=== PATIENT | male | born 1965 | race Caucasian/White ===

== ENCOUNTER 2021-10-25 17:42 | Inpatient (IN) ==
[2021-10-25] MEDS ORDERED: Naloxone 0.4 MG/ML INJ IVP PRN (22:24)
[2021-10-25] MEDS ORDERED: Ondansetron 4 MG/2 ML VIAL IVP PRN (22:24)
[2021-10-25] MEDS ORDERED: Acetaminophen 325 MG TABLET PO PRN (22:24)
[2021-10-25] MEDS ORDERED: Furosemide 20 MG/2 ML VIAL IVP ONE (22:38)
[2021-10-25] MEDS ORDERED: Azithromycin 500 MG in 0.9 % Sodium Chloride 250 ML IVPB SCH (23:00)
[2021-10-26 03:02] LABS: Bilirubin,Urine Negative (Negative); Blood,Urine Negative (Negative); Clarity,Urine Clear (Clear); Color,Urine Colorless (Yellow); Glucose,Urine (UA) Normal (Normal); Ketones,Urine Negative (Negative); Leukocyte Esterase,Urine Negative (Negative); Nitrite,Urine Negative (Negative); Protein,Urine Negative (Neg-Trace); Specific Gravity,Urine 1.007 (1.010-1.025); Urobilinogen,Urine Normal (Normal)
[2021-10-26 03:41] LABS: INR 1.1; Prothrombin Time 11.8 Seconds (9.4-12.1)
[2021-10-26] MEDS ORDERED: 0.9 % Sodium Chloride 500 ML IVC PRN (03:41)
[2021-10-26 03:52] LABS: C-Reactive Protein 13 mg/L (Less than 10); Creatine Kinase 20 Units/L (30-223)
[2021-10-26 04:14] LABS: % Iron Saturation 12 % (20-55); Alanine Aminotransferase 5 Units/L (7-52); Albumin 3.2 g/dL (3.5-5.7); Albumin/Globulin Ratio 1.9 (1.1-2.2); Alkaline Phosphatase 65 Units/L (34-104); Aspartate Amino Transferase 9 Units/L (13-39); BUN/Creatinine Ratio 19 (6-26); Bilirubin,Direct 0.1 mg/dL (0.0-0.2); Bilirubin,Indirect 0.3 mg/dL (0.0-1.0); Bilirubin,Total 0.4 mg/dL (0.3-1.0); Blood Urea Nitrogen 7 mg/dL (6-20); Calcium 8.4 mg/dL (8.6-10.3); Carbon Dioxide 40 mEq/L (23-29); Chloride 92 mEq/L (98-107); Ferritin 705 ng/mL (20-250); Globulin 1.7 g/dL (2.4-3.5); Glucose 104 mg/dL (70-105); Iron 27 mcg/dL (65-175); Lactate Dehydrogenase 118 Units/L (140-271); Magnesium 1.6 mg/dL (1.6-2.6); Osmolality,Calculated 282 (280-300); Phosphorous 4.2 mg/dL (2.7-4.5); Potassium 4.2 mEq/L (3.5-5.1); Sodium 137 mEq/L (136-145); Thyroid Stimulating Hormone 0.232 mcIU/mL (0.340-5.600); Total Protein 4.9 g/dL (6.4-8.9); Transferrin 155 mg/dL (203-362); Troponin I < 0.03 ng/mL (< 0.04); eGFR For African Americans > 60 (> 60); eGFR For Non-African Americans > 60 (> 60)
[2021-10-26 04:15] LABS: Folate 11.6 ng/mL (3.0-16.0)
[2021-10-26 05:09] LABS: ABG Base Excess 14 mEq/L (-2 to 3); ABG HCO3 42 mEq/L (21-27); ABG Oxygen Saturation 100 % (95-98); ABG PCO2 86 mmHg (35-45); ABG PO2 345 mmHg (85-104); ABG TCO2 45 mEq/L (20-26); Blood Gas Pressure Support 7 cm H2O
[2021-10-26 05:56] LABS: Mean Platelet Volume 10.7 fL (9.4-12.4); Red Cell Distribution Width 13.3 % (11.5-14.5)
[2021-10-26 05:58] LABS: Hematocrit 28.3 % (37.5-50.1); Hemoglobin 9.1 g/dL (12.9-16.9); Immature Granulocytes % 0.6 % (0-4); Immature Platelets 11.4 % (1.1-6.1); Lymphocytes # 0.3 K/mcL (0.6-4.6); Lymphocytes % 5.6 %; Mean Corpuscular HGB Conc 32.2 g/dL (31.6-35.5); Mean Corpuscular Hemoglobin 30.3 pg (28.0-33.3); Mean Corpuscular Volume 94.3 fL (83.0-100.0); Monocytes # 0.3 K/mcL (0.0-1.3); Monocytes % 6.8 %; Neutrophils # 4.3 K/mcL (1.6-8.9); Platelet Count 103 K/mcL (140-400); White Blood Count 4.9 K/mcL (4.3-11.1)
[2021-10-26 08:24] LABS: ABG Base Excess 19 mEq/L (-2 to 3); ABG HCO3 47 mEq/L (21-27); ABG Oxygen Saturation 90 % (95-98); ABG PCO2 76 mmHg (35-45); ABG PH 7.39 pH Units (7.32-7.45); ABG PO2 64 mmHg (85-104); ABG TCO2 49 mEq/L (20-26)
[2021-10-26] MEDS: *HR* Enoxaparin 30 MG/0.3 ML SYRINGE SQ SCH (08:40)
[2021-10-26] MEDS ORDERED: Remdesivir 200 MG in 0.9 % Sodium Chloride 100 ML IVPB ONE (10:00)
[2021-10-26] MEDS ORDERED: amLODIPine 5 MG TABLET PO ONE (10:20)
[2021-10-26] MEDS: Cyanocobalamin (B-12) 1,000 MCG TABLET PO SCH (10:25)
[2021-10-26] MEDS: hydrOXYzine pamoate 25 MG CAPSULE PO PRN (11:47)
[2021-10-26] MEDS: *HR* LORazepam 1 MG TABLET PO PRN ×2 (15:11→21:36)
[2021-10-26] MEDS: Magnesium Oxide 400 MG TABLET PO SCH (19:59)
[2021-10-26] MEDS: Metoprolol 100 MG TABLET PO SCH (19:59)
[2021-10-26] MEDS: Nicotine 21 MG PATCH.TD24 TD SCH (21:36)
[2021-10-27] MEDS: hydrOXYzine pamoate 25 MG CAPSULE PO PRN ×2 (02:30→15:34)
[2021-10-27 06:32] LABS: Basophils % 0.2 %
[2021-10-27 06:34] LABS: Hemoglobin 8.8 g/dL (12.9-16.9); Immature Granulocytes % 0.5 % (0-4); Immature Platelets 16.9 % (1.1-6.1); Lymphocytes # 0.5 K/mcL (0.6-4.6); Lymphocytes % 8.4 %; Mean Corpuscular HGB Conc 31.4 g/dL (31.6-35.5); Mean Corpuscular Hemoglobin 29.8 pg (28.0-33.3); Mean Corpuscular Volume 94.9 fL (83.0-100.0); Mean Platelet Volume 11.6 fL (9.4-12.4); Monocytes # 0.8 K/mcL (0.0-1.3); Monocytes % 13.3 %; Neutrophils # 4.5 K/mcL (1.6-8.9); Platelet Count 80 K/mcL (140-400); Red Blood Count 2.95 M/mcL (4.19-5.50); Red Cell Distribution Width 13.3 % (11.5-14.5); Segmented Neutrophils % 77.6 %; White Blood Count 5.8 K/mcL (4.3-11.1)
[2021-10-27 06:50] LABS: Alanine Aminotransferase 8 Units/L (7-52); Albumin 3.2 g/dL (3.5-5.7); Alkaline Phosphatase 59 Units/L (34-104); Aspartate Amino Transferase 9 Units/L (13-39); BUN/Creatinine Ratio 19 (6-26); Bilirubin,Direct 0.1 mg/dL (0.0-0.2); Bilirubin,Indirect 0.3 mg/dL (0.0-1.0); Bilirubin,Total 0.4 mg/dL (0.3-1.0); Blood Urea Nitrogen 6 mg/dL (6-20); Calcium 8.7 mg/dL (8.6-10.3); Carbon Dioxide > 45 mEq/L (23-29); Chloride 92 mEq/L (98-107); Globulin 1.6 g/dL (2.4-3.5); Glucose 101 mg/dL (70-105); Osmolality,Calculated 292 (280-300); Potassium 3.4 mEq/L (3.5-5.1); Sodium 142 mEq/L (136-145); Total Protein 4.8 g/dL (6.4-8.9); eGFR For African Americans > 60 (> 60); eGFR For Non-African Americans > 60 (> 60)
[2021-10-27] MEDS ORDERED: GUAIFENESIN 400 MG PO SCH (09:00)
[2021-10-27] MEDS: Magnesium Oxide 400 MG TABLET PO SCH ×3 (09:25→21:06)
[2021-10-27] MEDS: *HR* LORazepam 1 MG TABLET PO PRN ×2 (09:25→13:57)
[2021-10-27] MEDS: Cyanocobalamin (B-12) 1,000 MCG TABLET PO SCH ×2 (09:25→10:16)
[2021-10-27] MEDS: Metoprolol 100 MG TABLET PO SCH ×4 (09:26→21:06)
[2021-10-27] MEDS: *HR* Enoxaparin 30 MG/0.3 ML SYRINGE SQ SCH ×3 (09:26→13:58)
[2021-10-27] MEDS: Nicotine 21 MG PATCH.TD24 TD SCH (10:16)
[2021-10-27] MEDS: Remdesivir 100 MG in 0.9 % Sodium Chloride 100 ML IVPB SCH ×2 (11:33→14:02)
[2021-10-27 14:01] LABS: Hematocrit 32.8 % (37.5-50.1)
[2021-10-27 14:03] LABS: Hemoglobin 10.1 g/dL (12.9-16.9)
[2021-10-27] MEDS ORDERED: Haloperidol Lactate 5 MG/ML VIAL IVP PRN (15:38)
[2021-10-27] MEDS ORDERED: *HR* LORazepam 2 MG/ML VIAL IVP PRN ×2 (16:59→20:26)
[2021-10-27] MEDS ORDERED: Thiamine (B-1) 250 MG in 0.9 % Sodium Chloride 50 ML IVPB SCH (21:00)
[2021-10-27] MEDS ORDERED: QUEtiapine Fumarate 25 MG TABLET PO SCH (21:00)
[2021-10-27] MEDS: Thiamine (B-1) 250 MG in 0.9 % Sodium Chloride 50 ML IVPB SCH (21:06)
[2021-10-27] MEDS: Dexmedetomidine HCl 400 MCG/100 ML MLS IVC SCH (22:20)
[2021-10-28] MEDS: Metoprolol 100 MG TABLET PO SCH ×3 (09:00→21:25)
[2021-10-28] MEDS: Nicotine 21 MG PATCH.TD24 TD SCH (09:11)
[2021-10-28] MEDS: Thiamine (B-1) 250 MG in 0.9 % Sodium Chloride 50 ML IVPB SCH ×3 (09:12→21:51)
[2021-10-28 09:37] LABS: Hematocrit 29.9 % (37.5-50.1); Hemoglobin 9.2 g/dL (12.9-16.9); Immature Granulocytes % 0.5 % (0-4); Mean Corpuscular HGB Conc 30.8 g/dL (31.6-35.5); Mean Corpuscular Hemoglobin 29.8 pg (28.0-33.3); Mean Corpuscular Volume 96.8 fL (83.0-100.0); Mean Platelet Volume 10.5 fL (9.4-12.4); Monocytes % 8.8 %; Red Blood Count 3.09 M/mcL (4.19-5.50); Red Cell Distribution Width 13.2 % (11.5-14.5); Segmented Neutrophils % 80.7 %; White Blood Count 4.3 K/mcL (4.3-11.1)
[2021-10-28 09:38] LABS: Lymphocytes # 0.4 K/mcL (0.6-4.6); Monocytes # 0.4 K/mcL (0.0-1.3); Neutrophils # 3.5 K/mcL (1.6-8.9)
[2021-10-28 09:40] LABS: Platelet Count 51 K/mcL (140-400)
[2021-10-28] MEDS: Remdesivir 100 MG in 0.9 % Sodium Chloride 100 ML IVPB SCH (10:29)
[2021-10-28 11:00] LABS: Albumin 3.3 g/dL (3.5-5.7); Albumin/Globulin Ratio 2.1 (1.1-2.2); Bilirubin,Direct 0.1 mg/dL (0.0-0.2); Bilirubin,Indirect 0.3 mg/dL (0.0-1.0); Bilirubin,Total 0.4 mg/dL (0.3-1.0); Globulin 1.6 g/dL (2.4-3.5); Total Protein 4.9 g/dL (6.4-8.9)
[2021-10-28 11:07] LABS: BUN/Creatinine Ratio 22 (6-26); Blood Urea Nitrogen 11 mg/dL (6-20); Calcium 8.3 mg/dL (8.6-10.3); Carbon Dioxide > 45 mEq/L (23-29); Chloride 89 mEq/L (98-107); Glucose 192 mg/dL (70-105); Osmolality,Calculated 289 (280-300); Potassium 3.4 mEq/L (3.5-5.1); Sodium 137 mEq/L (136-145); eGFR For African Americans > 60 (> 60); eGFR For Non-African Americans > 60 (> 60)
[2021-10-28] MEDS ORDERED: Haloperidol Lactate 5 MG/ML VIAL IVP PRN (11:16)
[2021-10-28] MEDS: *HR* Enoxaparin 30 MG/0.3 ML SYRINGE SQ SCH (11:29)
[2021-10-28] MEDS: Cyanocobalamin (B-12) 1,000 MCG TABLET PO SCH (11:29)
[2021-10-28] MEDS: Folic Acid 1 MG TABLET PO SCH (11:29)
[2021-10-28] MEDS: Magnesium Oxide 400 MG TABLET PO SCH ×2 (11:29→21:25)
[2021-10-28] MEDS: QUEtiapine Fumarate 25 MG TABLET PO SCH ×2 (11:35→21:25)
[2021-10-28 12:54] LABS: VBG HCO3 46 mEq/L (21-27); VBG PCO2 85 mmHg (41-51); VBG PH 7.34 pH Units (7.32-7.42); VBG PO2 124 mmHg (25-50)
[2021-10-28] MEDS: Dexmedetomidine HCl 400 MCG/100 ML MLS IVC SCH (16:40)
[2021-10-28] MEDS: Ipratropium 1 PUFF INHALER IH SCH ×3 (17:32→23:51)
[2021-10-28 17:39] LABS: ABG Base Excess 20 mEq/L (-2 to 3); ABG HCO3 48 mEq/L (21-27); ABG Oxygen Saturation 96 % (95-98); ABG PCO2 88 mmHg (35-45); ABG PH 7.35 pH Units (7.32-7.45); ABG PO2 89 mmHg (85-104); ABG TCO2 > 50 mEq/L (20-26); Blood Gas Modality NIV; Blood Gas VT 450 cc
[2021-10-28 21:16] LABS: ABG Base Excess 19 mEq/L (-2 to 3); ABG HCO3 47 mEq/L (21-27); ABG Oxygen Saturation 91 % (95-98); ABG PCO2 81 mmHg (35-45); ABG PH 7.38 pH Units (7.32-7.45); ABG PO2 67 mmHg (85-104); ABG TCO2 50 mEq/L (20-26); Blood Gas Modality AVAPS; Blood Gas VT 450 cc
[2021-10-28] MEDS: *HR* LORazepam 2 MG/ML VIAL IVP PRN (21:26)
[2021-10-29] MEDS: Ipratropium 1 PUFF INHALER IH SCH ×6 (03:37→23:41)
[2021-10-29 05:17] LABS: Albumin/Globulin Ratio 2.3 (1.1-2.2); Bilirubin,Direct 0.1 mg/dL (0.0-0.2); Bilirubin,Indirect 0.2 mg/dL (0.0-1.0); Bilirubin,Total 0.3 mg/dL (0.3-1.0); Globulin 1.3 g/dL (2.4-3.5); Total Protein 4.3 g/dL (6.4-8.9)
[2021-10-29 05:58] LABS: BUN/Creatinine Ratio 33 (6-26); Blood Urea Nitrogen 14 mg/dL (6-20); Calcium 8.2 mg/dL (8.6-10.3); Carbon Dioxide > 45 mEq/L (23-29); Chloride 91 mEq/L (98-107); Glucose 108 mg/dL (70-105); Osmolality,Calculated 289 (280-300); Potassium 3.9 mEq/L (3.5-5.1); Sodium 139 mEq/L (136-145); eGFR For African Americans > 60 (> 60); eGFR For Non-African Americans > 60 (> 60)
[2021-10-29] MEDS: Dexmedetomidine HCl 400 MCG/100 ML MLS IVC SCH (10:05)
[2021-10-29] MEDS: Remdesivir 100 MG in 0.9 % Sodium Chloride 100 ML IVPB SCH (11:06)
[2021-10-29] MEDS: QUEtiapine Fumarate 25 MG TABLET PO SCH ×2 (11:08→21:30)
[2021-10-29] MEDS: Cyanocobalamin (B-12) 1,000 MCG TABLET PO SCH (11:08)
[2021-10-29] MEDS: Metoprolol 100 MG TABLET PO SCH ×2 (11:08→21:30)
[2021-10-29] MEDS: Magnesium Oxide 400 MG TABLET PO SCH ×2 (11:08→21:30)
[2021-10-29] MEDS: Folic Acid 1 MG TABLET PO SCH (11:08)
[2021-10-29] MEDS: *HR* LORazepam 2 MG/ML VIAL IVP PRN ×2 (11:21→21:31)
[2021-10-29] MEDS: Nicotine 21 MG PATCH.TD24 TD SCH (11:31)
[2021-10-29 12:36] LABS: Mean Corpuscular Volume 95.2 fL (83.0-100.0); Red Cell Distribution Width 12.9 % (11.5-14.5)
[2021-10-29 12:38] LABS: Basophils % 0.2 %; Eosinophils % 0.5 %; Hematocrit 27.8 % (37.5-50.1); Hemoglobin 8.7 g/dL (12.9-16.9); Immature Granulocytes % 0.5 % (0-4); Immature Platelets 13.2 % (1.1-6.1); Lymphocytes # 0.7 K/mcL (0.6-4.6); Lymphocytes % 13.2 %; Mean Corpuscular HGB Conc 31.3 g/dL (31.6-35.5); Mean Corpuscular Hemoglobin 29.8 pg (28.0-33.3); Monocytes # 0.7 K/mcL (0.0-1.3); Monocytes % 12.2 %; Neutrophils # 4.1 K/mcL (1.6-8.9); Red Blood Count 2.92 M/mcL (4.19-5.50); Segmented Neutrophils % 73.4 %; White Blood Count 5.6 K/mcL (4.3-11.1)
[2021-10-29 13:04] LABS: Mean Platelet Volume 10.3 fL (9.4-12.4)
[2021-10-29] MEDS: Thiamine (B-1) 250 MG in 0.9 % Sodium Chloride 50 ML IVPB SCH ×3 (13:16→21:30)
[2021-10-30] MEDS: Dexmedetomidine HCl 400 MCG/100 ML MLS IVC SCH ×2 (04:31→18:03)
[2021-10-30] MEDS: Ipratropium 1 PUFF INHALER IH SCH ×6 (04:35→23:31)
[2021-10-30 04:54] LABS: Hemoglobin 8.6 g/dL (12.9-16.9)
[2021-10-30 05:13] LABS: Hematocrit 27.7 % (37.5-50.1); Immature Granulocytes % 0.4 % (0-4); Lymphocytes # 0.5 K/mcL (0.6-4.6); Lymphocytes % 8.1 %; Mean Corpuscular Hemoglobin 29.4 pg (28.0-33.3); Mean Corpuscular Volume 94.5 fL (83.0-100.0); Mean Platelet Volume 11.9 fL (9.4-12.4); Monocytes # 0.5 K/mcL (0.0-1.3); Monocytes % 8.6 %; Platelet Count 115 K/mcL (140-400); Red Blood Count 2.93 M/mcL (4.19-5.50); Red Cell Distribution Width 13.1 % (11.5-14.5); Segmented Neutrophils % 82.9 %; White Blood Count 5.5 K/mcL (4.3-11.1)
[2021-10-30 05:14] LABS: Neutrophils # 4.6 K/mcL (1.6-8.9)
[2021-10-30 05:16] LABS: Albumin 2.9 g/dL (3.5-5.7); Albumin/Globulin Ratio 2.1 (1.1-2.2); Bilirubin,Direct 0.1 mg/dL (0.0-0.2); Bilirubin,Indirect 0.3 mg/dL (0.0-1.0); Bilirubin,Total 0.4 mg/dL (0.3-1.0); Globulin 1.4 g/dL (2.4-3.5); Total Protein 4.3 g/dL (6.4-8.9)
[2021-10-30 06:08] LABS: BUN/Creatinine Ratio 22 (6-26); Blood Urea Nitrogen 8 mg/dL (6-20); Calcium 7.9 mg/dL (8.6-10.3); Carbon Dioxide > 45 mEq/L (23-29); Chloride 93 mEq/L (98-107); Glucose 105 mg/dL (70-105); Osmolality,Calculated 287 (280-300); Potassium 4.2 mEq/L (3.5-5.1); Sodium 139 mEq/L (136-145); eGFR For African Americans > 60 (> 60); eGFR For Non-African Americans > 60 (> 60)
[2021-10-30] MEDS: Magnesium Oxide 400 MG TABLET PO SCH ×2 (08:58→21:36)
[2021-10-30] MEDS: Metoprolol 100 MG TABLET PO SCH ×2 (08:58→21:36)
[2021-10-30] MEDS: Cyanocobalamin (B-12) 1,000 MCG TABLET PO SCH (08:58)
[2021-10-30] MEDS: Folic Acid 1 MG TABLET PO SCH (08:58)
[2021-10-30] MEDS: QUEtiapine Fumarate 25 MG TABLET PO SCH ×2 (08:59→21:35)
[2021-10-30] MEDS: Nicotine 21 MG PATCH.TD24 TD SCH (09:01)
[2021-10-30] MEDS: *HR* LORazepam 2 MG/ML VIAL IVP PRN (09:06)
[2021-10-30] MEDS: Remdesivir 100 MG in 0.9 % Sodium Chloride 100 ML IVPB SCH (09:07)
[2021-10-30] MEDS: Thiamine (B-1) 250 MG in 0.9 % Sodium Chloride 50 ML IVPB SCH ×2 (13:36→17:02)
[2021-10-31] MEDS: Ipratropium 1 PUFF INHALER IH SCH ×6 (04:12→23:28)
[2021-10-31] MEDS: Dexmedetomidine HCl 400 MCG/100 ML MLS IVC SCH (06:54)
[2021-10-31] MEDS: Nicotine 21 MG PATCH.TD24 TD SCH (09:08)
[2021-10-31] MEDS: Cyanocobalamin (B-12) 1,000 MCG TABLET PO SCH (09:10)
[2021-10-31] MEDS: Metoprolol 100 MG TABLET PO SCH ×2 (09:10→20:10)
[2021-10-31] MEDS: Magnesium Oxide 400 MG TABLET PO SCH ×2 (09:10→20:09)
[2021-10-31] MEDS: Thiamine (B-1) 100 MG TABLET PO SCH (09:10)
[2021-10-31] MEDS: Folic Acid 1 MG TABLET PO SCH (09:10)
[2021-10-31] MEDS: QUEtiapine Fumarate 25 MG TABLET PO SCH ×2 (09:11→20:09)
[2021-10-31] MEDS: *HR* LORazepam 2 MG/ML VIAL IVP PRN (09:13)
[2021-10-31 15:13] LABS: Alanine Aminotransferase 12 Units/L (7-52); Albumin/Globulin Ratio 2.1 (1.1-2.2); Alkaline Phosphatase 66 Units/L (34-104); Aspartate Amino Transferase 14 Units/L (13-39); BUN/Creatinine Ratio 20 (6-26); Bilirubin,Indirect 0.3 mg/dL (0.0-1.0); Bilirubin,Total 0.3 mg/dL (0.3-1.0); Blood Urea Nitrogen 9 mg/dL (6-20); Calcium 8.5 mg/dL (8.6-10.3); Carbon Dioxide 43 mEq/L (23-29); Chloride 94 mEq/L (98-107); Globulin 1.4 g/dL (2.4-3.5); Glucose 148 mg/dL (70-105); Osmolality,Calculated 281 (280-300); Potassium 4.3 mEq/L (3.5-5.1); Sodium 135 mEq/L (136-145); Total Protein 4.4 g/dL (6.4-8.9); eGFR For African Americans > 60 (> 60); eGFR For Non-African Americans > 60 (> 60)
[2021-10-31] MEDS ORDERED: *HR* Enoxaparin 30 MG/0.3 ML SYRINGE SQ SCH (16:30)
[2021-10-31 17:12] LABS: Basophils % 0.1 %; Hematocrit 28.8 % (37.5-50.1); Hemoglobin 9.4 g/dL (12.9-16.9); Immature Granulocytes % 0.8 % (0-4); Lymphocytes # 0.3 K/mcL (0.6-4.6); Lymphocytes % 3.4 %; Mean Corpuscular HGB Conc 32.6 g/dL (31.6-35.5); Mean Corpuscular Hemoglobin 30.7 pg (28.0-33.3); Mean Corpuscular Volume 94.1 fL (83.0-100.0); Mean Platelet Volume 12.2 fL (9.4-12.4); Monocytes # 0.2 K/mcL (0.0-1.3); Monocytes % 3.1 %; Neutrophils # 6.9 K/mcL (1.6-8.9); Platelet Count 134 K/mcL (140-400); Red Blood Count 3.06 M/mcL (4.19-5.50); Red Cell Distribution Width 12.9 % (11.5-14.5); Segmented Neutrophils % 92.6 %; White Blood Count 7.4 K/mcL (4.3-11.1)
[2021-11-01] MEDS ORDERED: Saliva Stimulant 44.3ml BOTTLE PO PRN (02:44)
[2021-11-01] MEDS: Ipratropium 1 PUFF INHALER IH SCH ×2 (03:55→07:55)
[2021-11-01 04:44] VITALS: BP 146/77; PULSE 87; TEMP 98
[2021-11-01] MEDS: Cyanocobalamin (B-12) 1,000 MCG TABLET PO SCH (09:14)
[2021-11-01] MEDS: Magnesium Oxide 400 MG TABLET PO SCH (09:14)
[2021-11-01] MEDS: QUEtiapine Fumarate 25 MG TABLET PO SCH (09:14)
[2021-11-01] MEDS: Thiamine (B-1) 100 MG TABLET PO SCH (09:14)
[2021-11-01] MEDS: Folic Acid 1 MG TABLET PO SCH (09:14)
[2021-11-01] MEDS: Metoprolol 100 MG TABLET PO SCH (09:14)
[2021-11-01] MEDS: Nicotine 21 MG PATCH.TD24 TD SCH (09:16)
[2021-11-01 12:10] VITALS: O2SAT 100
== END 2021-11-01 13:20 | disposition home health service (06) | DRG 177 ==
LOC: 2NENU → SUATTDRO 22:25
PROVIDERS: ADMIT Student in an Organized Health Care Education/Training Program; ATTEND Internal Medicine